=== PATIENT | female | born 1995 | race American Indian/Alaskan Native ===

== ENCOUNTER 2016-09-16 08:33 | Day surgery (SDC) | payer BC ==
[2012-07-05 11:36] VITALS: BMI 30.5
[2016-09-16] MEDS ORDERED: Lactated Ringer's 500 ML IV ONE (09:04)
[2016-09-16 09:24] VITALS: O2SAT 100
[2016-09-16] MEDS ORDERED: Propofol 10 mg/ml Inj (20 ML) ONE (10:57)
[2016-09-16 11:39] VITALS: TEMP 96.9
[2016-09-16 11:42] VITALS: BP 121/74; PULSE 67; RESP 16
== END 2016-09-16 12:33 | disposition home or self-care (01) ==
LOC: H.ENDO 08:33
PROVIDERS: ATTEND Internal Medicine Gastroenterology
DX: R10.9 Unspecified abdominal pain (principal)
CPT/HCPCS: 43239; 88305; J2001; J2704; J7120